=== PATIENT | female | born 1970 | race Two or more races ===

== ENCOUNTER 2017-03-05 13:23 | Outpatient (CLI) | payer OTHER, SELFPAY ==
[~2017-03-05 13:23] MED LIST: CHLOTHALIDONE PO; CLINDAMYCIN HC300 MG ORAL; KEFLEX500 MG ORAL; NORCO 5-325 TA1 EACH ORAL; NORVASC5 MG ORAL
[2017-03-05 13:55] LABS: APPEARANCE,URINE CLOUDY; KETONES,URINE NEGATIVE (NEGATIVE); LEUKOCYTE ESTERASE ,URINE NEGATIVE (NEGATIVE); NITRITE,URINE NEGATIVE (NEGATIVE); PH,URINE 5 (4.5-8.0); PROTEIN,URINE 1+ (NEGATIVE); UROBILINOGEN,URINE NORMAL MG/DL (0.0-1.0)
[2017-03-05 13:57] LABS: BASOPHILS % (AUTO) 1.6 % (0.0-2.0); EOSINOPHILS % (AUTO) 6.1 % (0.0-3.0); LYMPHOCYTES % (AUTO) 41.3 % (20.0-45.0); MEAN CORPUSCULAR HEMOGLOBIN 31.9 PG (27.0-31.0); MEAN CORPUSCULAR HGB CONC 33.4 G/DL (32.0-36.0); MEAN CORPUSCULAR VOLUME 96 FL (80-99); MEAN PLATELET VOLUME 5.3 FL (6.5-10.1); MONOCYTES % (AUTO) 6.5 % (1.0-10.0); NEUTROPHILS % (AUTO) 44.5 % (45.0-75.0); PLATELET COUNT 459 K/UL (150-450); RED BLOOD COUNT 5.32 M/UL (4.20-5.40); RED CELL DISTRIBUTION WIDTH 11.7 % (11.6-14.8); WHITE BLOOD COUNT 8.5 K/UL (4.8-10.8)
[2017-03-05 14:16] LABS: AMORPHOUS SEDIMENT,UR FEW /LPF; BACTERIA,URINE FEW /HPF; RBC,URINE 0-2 /HPF (0 - 2); SQUAMOUS EPITHELIAL CELL,UR FEW /LPF (NONE/OCC); WBC,URINE 0-2 /HPF (0 - 2)
[2017-03-05 14:18] LABS: ALANINE AMINOTRANSFERASE 23 U/L (12-78); ANION GAP 10 mmol/L (5-15); ASPARTATE AMINO TRANSFERASE 32 U/L (15-37); CALCIUM 8.6 MG/DL (8.5-10.1); CARBON DIOXIDE 25 MMOL/L (21-32); CHLORIDE 105 MMOL/L (98-107); CHOLESTEROL 165 MG/DL (< 200); CHOLESTEROL/HDL RATIO 2.8 (3.3-4.4); CREATININE 0.7 MG/DL (0.55-1.30); GLOMERULAR FILTRATION RATE > 60 mL/min (>60); POTASSIUM 3.4 MMOL/L (3.5-5.1); SODIUM 140 MMOL/L (136-145); TOTAL PROTEIN 8.5 G/DL (6.4-8.2)
== END 2017-03-05 15:23 | disposition home or self-care (01) ==
LOC: LAB 13:23
DX: E78.5 Hyperlipidemia, unspecified (principal)
CPT/HCPCS: 36415; 80053; 80061; 81001; 85025

== ENCOUNTER 2017-05-21 22:12 | Emergency (ER) | payer OTHER ==
[~2017-05-21] VITALS: Ht 170.2 cm; Wt 90.7 kg
[2017-05-21 23:05] VITALS: BP 137/92
[2017-05-21] MEDS ORDERED: Tetanus/Diptheria/Pertussis Vaccine 0.5ml Syr IM ONE (23:45)
--- NOTE | 2017-05-21 23:48 | Emergency Room Report ---
History of Present Illness General Chief Complaint: Laceration Source: Patient Present Illness [facility] This is a 46-year-old female who is right-hand dominant. She presents with chief complaint of laceration to the left wrist. She was closing her trash bag and there was a sharp middle-age from a container that cause a laceration to her wrist. No active bleeding. No other complaint. Minimal pain. Allergies: Coded Allergies: No Known Allergies (Unverified , 07/12/13) Patient History Past Medical History: see triage record, old chart reviewed Past Surgical History: , hysterectomy, other Pertinent Family History: none Social History: Denies: smoking Last Menstrual Period: None. Now: No Immunizations: other Reviewed Nursing Documentation: PMH: Agreed, PSxH: Agreed Nursing Documentation-PMH Hx Hypertension: Yes Review of Systems Eye: Denies: eye pain, blurred vision ENT: Denies: ear pain, nose congestion, throat swelling Respiratory: Denies: cough, shortness of breath Cardiovascular: Denies: chest pain, palpitations Gastrointestinal: Denies: abdominal pain, diarrhea, nausea, vomiting Musculoskeletal: Denies: back pain, joint pain Skin: Denies: rash Neurological: Denies: headache, numbness Endocrine: Denies: increased thirst, increased urine Hematologic/Lymphatic: Denies: easy bruising All Other Systems: negative except mentioned in HPI Physical Exam Vital Signs Date Time Temp Pulse Resp B/P (MAP) Pulse Ox O2 Delivery O2 Flow Rate FiO2 05/21/17 22:55 98.0 71 18 137/92 98 Room Air 98.1 vitals stable Sp02 EP Interpretation: reviewed, normal General Appearance: well appearing, no apparent distress, alert Head: normocephalic, atraumatic Eyes: bilateral eye PERRL, bilateral eye EOMI ENT: hearing grossly normal, normal pharynx Neck: full range of motion, supple, no meningismus Respiratory: chest non-tender, lungs clear, normal breath sounds Cardiovascular #1: regular rate, rhythm, no murmur Gastrointestinal: normal bowel sounds, non tender, no mass, no organomegaly, no bruit, non-distended Musculoskeletal: back normal, gait/station normal, normal range of motion, other - 2cm lac to left wrist: gaping. no fb. no tendon lac Psychiatric: mood/affect normal Skin: warm/dry Procedures Laceration/Wound Repair Laceration/Wound Repair : Consent: Verbal Wound Location: upper extremity Wound's Depth, Shape: linear Wound Length (cm): 2 Wound Explored: clean Irrigated w/ Saline (ccs): 1000 Betadine Prep?: Yes Anesthesia: 1% Lidocaine Volume Anesthetic (ccs): 2 Wound Repaired With: sutures Suture Size/Type: 5:0, proline Number of Sutures: 2 Patient Tolerated: Well Complications: None Medical Decision Making Diagnostic Impression: Primary Impression: Laceration ER Course Patient with a left wrist laceration. No tendon involvement or foreign body. We'll discharge home. Last Vital Signs Date Time Temp Pulse Resp B/P (MAP) Pulse Ox O2 Delivery O2 Flow Rate FiO2 05/21/17 22:55 98.0 71 18 137/92 98 Room Air 98.1 Status: improved Disposition: HOME, SELF-CARE Condition: Stable Patient Instructions: Laceration Care, Adult Additional Instructions: Follow-up with your doctor in 7-10 days for suture removal. Return if worse. JOSE TARIQ M.D. May 21, 2017 23:48
[2017-05-21 23:58] VITALS: BP 137/92
== END 2017-05-21 23:58 | disposition home or self-care (01) ==
LOC: EMR 23:13
DX: S61.512A Laceration without foreign body of left wrist, initial encounter (principal); W45.8XXA Other foreign body or object entering through skin, initial encounter; Y92.9 Unspecified place or not applicable; Z23 Encounter for immunization
CPT/HCPCS: 90471; 90715; 99283

== ENCOUNTER 2017-06-03 18:59 | Emergency (ER) | payer OTHER ==
[~2017-06-03] VITALS: Ht 170.2 cm; Wt 86.2 kg
--- NOTE | 2017-06-03 19:32 | Emergency Room Report ---
History of Present Illness General Chief Complaint: Wound Recheck/Suture Removal Source: Patient Present Illness HPI 46 yo female patient presents to ER for suture removal. Reports injury occurred on left wrist over a week ago, seen in [place]. Patient is right hand dominant. Reports cut wrist and received 2 sutures. Reports she put hydrogen peroxide on wound and it began to pus; reports she did twice. Reports no erythema or pus prior to intervention at home with hydrogen peroxide. States she was not discharged on abx, was given TDAP shot. Denies loss of ROM. Denies fever, chest pain, SOB. Allergies: Coded Allergies: No Known Allergies (Unverified , 07/12/13) Patient History Past Medical History: see triage record Last Menstrual Period: none Reviewed Nursing Documentation: PMH: Agreed, PSxH: Agreed Nursing Documentation-PMH Hx Hypertension: Yes Review of Systems All Other Systems: negative except mentioned in HPI Physical Exam Vital Signs Date Time Temp Pulse Resp B/P (MAP) Pulse Ox O2 Delivery O2 Flow Rate FiO2 06/03/17 19:20 99.0 74 18 135/86 98 Room Air 99.0 Sp02 EP Interpretation: reviewed, normal General Appearance: well appearing, no apparent distress, alert, GCS 15, non- toxic Head: normocephalic, atraumatic Eyes: bilateral eye normal inspection, bilateral eye PERRL ENT: hearing grossly normal, normal pharynx, no angioedema, normal voice, uvula midline, moist mucus membranes Neck: full range of motion Respiratory: lungs clear, normal breath sounds, no rhonchi, no respiratory distress, no accessory muscle use, no wheezing, speaking full sentences Cardiovascular #1: regular rate, rhythm, no edema Musculoskeletal: back normal, digits/nails normal, gait/station normal, normal range of motion, non-tender Neurologic: alert, oriented x3, responsive, motor strength/tone normal, sensory intact Psychiatric: mood/affect normal Skin: other - left wrist: healed laceration with scabbing, no active draining, mild erythema, no edema, 2 sutures Lymphatic: no adenopathy Medical Decision Making PA Attestation Dr. Walker is my supervising Physician whom patient management has been discussed with. Diagnostic Impression: Primary Impression: Encounter for removal of sutures ER Course Pt. presents to the ED requesting suture removal. Ddx considered but are not limited to cellulitis, abscess, suture removal. Vital signs: are WNL, pt. is afebrile Ordered Bacitracin ED INTERVENTIONS: Wound healed, mild erythema present, no edema, no TTP, no surrounding cellulitis ; mild erythema likely secondary to hydrogen peroxide use. Does not require abx at this time. Will provide Bacitracin for at home application. Wound cleaned and 2 sutures removed. Patient tolerated procedure well, no bleeding, no drainage. Bacitracin applied to wound. Patient is resting comfortably, in no acute distress, non-toxic appearing. DISCHARGE: Rx provided for Bacitracin Do not use hydrogen peroxide on wound At this time pt. is stable for d/c to home, followup with primary care provider in 3-5 days for wound check. Patient resting comfortably, in no acute distress, nontoxic appearing. Will provide printed patient care instructions and any necessary prescriptions. Care plan and follow up instructions have been discussed with the patient prior to discharge. Patient instructed to follow-up with primary care provider for further treatment and referral. Patient questions asked and answered. ER precautions given. Patient instructed to return to ER immediately for any new or worsening of symptoms including but not limited to fever, worsening of pain symptoms. Last Vital Signs Date Time Temp Pulse Resp B/P (MAP) Pulse Ox O2 Delivery O2 Flow Rate FiO2 06/03/17 19:20 99.0 74 18 135/86 98 Room Air 99.0 Disposition: HOME, SELF-CARE Condition: Stable Scripts Bacitracin/Polymyxin B Sulfate (BACITRACIN-POLYMYXIN OINTMENT) 28.35 Gm Oint...g. 1 APPLIC TP BID for 5 Days, GM Prov: Greyson Crowell 06/03/17 Patient Instructions: Suture Removal, Care After, Wound Check Additional Instructions: Followup with primary care provider in 3 -5 days for wound check. Do not use hydrogen peroxide on wound. Take medications as directed. Patient questions asked and answered. ER precautions given, patient instructed to return to ER immediately for any new or worsening of symptoms. Greyson Crowell Jun 03, 2017 19:32
[2017-06-03] MEDS ORDERED: BACITRACIN-P28.35 GM TP (19:41)
[2017-06-03 19:43] VITALS: BP 135/86
[2017-06-03] MEDS ORDERED: Bacitracin Oint UD TOPIC ONE (19:45)
== END 2017-06-03 20:44 | disposition home or self-care (01) ==
LOC: EMR 19:39
DX: S61.512D Laceration without foreign body of left wrist, subsequent encounter (principal); X58.XXXD Exposure to other specified factors, subsequent encounter; Z48.02 Encounter for removal of sutures; I10 Essential (primary) hypertension
CPT/HCPCS: 99283